=== PATIENT | female | born 1960 | race Caucasian/White ===

== ENCOUNTER → 2017-01-11 | Outpatient (REF) | payer OTHER | LOC: M LAB REF 17:00 | PROVIDERS: ATTEND Nurse Practitioner Family | DX: M25.50 Pain in unspecified joint (principal) ==

== ENCOUNTER → 2017-01-25 | Outpatient (REF) | payer OTHER | LOC: M LAB REF 14:39 | PROVIDERS: ATTEND Nurse Practitioner Family | DX: E83.52 Hypercalcemia (principal) ==

== ENCOUNTER → 2017-02-23 | Outpatient (REF) | payer OTHER ==
[2017-02-23 10:13] LABS: TOTAL VOLUME, URINE 2600 ML
[2017-02-23 10:45] LABS: CALCIUM, 24 HOUR URINE 483.6 MG/24HR (42-353); CALCIUM, URINE 18.6 MG/DL
== END ==
LOC: M LAB REF 10:06
DX: E21.0 Primary hyperparathyroidism (principal)

== ENCOUNTER → 2017-03-02 | Outpatient (CLI) | payer OTHER | LOC: M RAD 08:58 | DX: E21.0 Primary hyperparathyroidism (principal) ==

== ENCOUNTER → 2017-03-17 | Outpatient (REF) | payer OTHER ==
[2017-03-17 20:40] LABS: RHEUMATOID FACTOR QUANT < 10.0 IU/ML (0-15.0)
[2017-03-19 15:11] LABS: ANTINUCLEAR ANTIBODIES DIRECT Negative (Negative)
== END ==
LOC: M LAB REF 19:28
DX: M25.549 Pain in joints of unspecified hand (principal)
CPT/HCPCS: 86038

== ENCOUNTER 2017-04-25 07:56 | Emergency (ER) | payer OTHER ==
[2017-04-25 08:37] LABS: KETONE, URINE AUTO RFX NEGATIVE (NEGATIVE); LEUKOCYTE ESTERASE UR AUTO RFX NEGATIVE (NEGATIVE); MUCUS, URINE RFX SMALL (NEGATIVE); NITRITE, URINE AUTO RFX NEGATIVE (NEGATIVE); RBC, URINE AUTO RFX 1 /HPF (0-3); SPECIFIC GRAVITY UR AUTO RFX 1.018 (1.002-1.035); SQUAM EPITHELIAL CELL UR AURFX 0 /HPF (0-6); WBC, URINE AUTO RFX 2 /HPF (0-3)
[2017-04-25] MEDS: ONDANSETRON 4MG/2ML VIAL (J2405) IV (08:47)
[2017-04-25] MEDS: NS 1,000 ML IV (08:48)
[2017-04-25] MEDS: MORPHINE 4 MG/ML 1ML VIAL (J2270) IV ×2 (08:48→13:58)
[2017-04-25 08:51] LABS: BASO % 0.8 % (0.0-1.0); EOS # 0.1 10^3/uL (0.0-0.50); EOS % 1.1 % (0.0-3.0); HEMOGLOBIN 13.9 g/dl (12.0-16.0); IMMATURE GRANULOCYTE % 0.2 % (0-3.0); LYMPH # 0.9 10^3/uL (1.5-4.5); MEAN CORPUSCULAR HEMOGLOBIN 28.9 pg (27.0-33.0); MEAN CORPUSCULAR HGB CONC 33.9 g/dl (32.0-36.5); MEAN CORPUSCULAR VOLUME 85.2 fl (80.0-96.0); MONO # 0.6 10^3/uL (0.0-0.8); MONO % 10.7 % (0.0-5.0); NEUTROPHILS # 3.8 10^3/uL (1.8-7.7); NEUTROPHILS % 71.2 % (36.0-66.0); PLATELET COUNT, AUTOMATED 200 10^3/uL (150-450); RED BLOOD COUNT 4.81 10^6/uL (4.00-5.40); RED CELL DISTRIBUTION WIDTH 12.7 % (11.5-14.5); WHITE BLOOD COUNT 5.3 10^3/uL (4.0-10.0)
[2017-04-25 09:08] LABS: ALBUMIN 3.6 GM/DL (3.2-5.2); ALBUMIN/GLOBULIN RATIO 1.33 (1.00-1.93); ALKALINE PHOSPHATASE 85 U/L (45-117); ALT/SGPT 38 U/L (12-78); AMYLASE 58 U/L (25-115); ANION GAP 9 MEQ/L (8-16); AST/SGOT 40 U/L (7-37); BILIRUBIN,DIRECT 0.2 MG/DL (0.0-0.2); BILIRUBIN,TOTAL 0.7 MG/DL (0.2-1.0); BLOOD UREA NITROGEN 8 MG/DL (7-18); CALCIUM LEVEL 9.8 MG/DL (8.5-10.1); CARBON DIOXIDE LEVEL 24 MEQ/L (21-32); CHLORIDE LEVEL 109 MEQ/L (98-107); GLOMERULAR FILTRATION RATE > 60.0 (>51); GLUCOSE, FASTING 125 MG/DL (70-100); LIPASE 140 U/L (73-393); POTASSIUM SERUM 4.1 MEQ/L (3.5-5.1); SODIUM LEVEL 142 MEQ/L (136-145); TOTAL PROTEIN 6.3 GM/DL (6.4-8.2)
[2017-04-25] MEDS: GASTROGRAFIN SOLUTION 30ML PO ×2 (10:35→11:05)
[2017-04-25] MEDS ORDERED: ISOVUE-370 76% 100ML VIAL (Q9967) As Ordered (11:09)
[2017-04-25 14:05] LABS: PTH INTACT 135.3 PG/ML (18.5-88.0)
[2017-04-25 14:06] LABS: INR 1.08; PROTHROMBIN TIME 14.2 SECONDS (12.4-14.5)
[2017-04-25 14:07] LABS: PARTIAL THROMBOPLASTIN TIME 31.1 SECONDS (26.8-37.9)
[2017-04-25] MEDS ORDERED: LIDOCAINE 1% MDV 20ML VIAL As Ordered (14:51)
== END 2017-04-25 18:42 | disposition home or self-care (01) ==
LOC: M ED 07:56
DX: E86.0 Dehydration (principal); K65.9 Peritonitis, unspecified; C25.2 Malignant neoplasm of tail of pancreas; C78.7 Secondary malignant neoplasm of liver and intrahepatic bile duct; E21.3 Hyperparathyroidism, unspecified; Z79.899 Other long term (current) drug therapy; Z98.890 Other specified postprocedural states; Z88.8 Allergy status to other drugs, medicaments and biological substances
CPT/HCPCS: J2270

== ENCOUNTER → 2017-05-03 | Outpatient (REF) | payer OTHER ==
[2017-05-03 19:03] LABS: CA19-9 TUMOR MARKER,CARBOHYDRA 19.4 U/ML (<35.0)
== END ==
LOC: M LAB REF 17:31
DX: C78.7 Secondary malignant neoplasm of liver and intrahepatic bile duct (principal); C25.2 Malignant neoplasm of tail of pancreas

== ENCOUNTER → 2017-05-06 | Outpatient (CLI) | payer OTHER | LOC: M EKG 08:37 | DX: Z01.818 Encounter for other preprocedural examination (principal); R94.31 Abnormal electrocardiogram [ECG] [EKG] | CPT/HCPCS: 71046 ==

== ENCOUNTER → 2017-06-13 | Outpatient (REF) | payer OTHER ==
[2017-06-14 11:19] LABS: CA19-9 TUMOR MARKER,CARBOHYDRA 42.7 U/ML (<35.0)
== END ==
LOC: M LAB REF 13:34
DX: C25.2 Malignant neoplasm of tail of pancreas (principal)

== ENCOUNTER → 2017-07-05 | Outpatient (CLI) | payer OTHER ==
[~2017-07-05] MED LIST: GASTROGRAFIN SOLUTION 30ML (Q9963) As Ordered; ISOVUE-370 76% 100ML VIAL (Q9967) As Ordered
== END ==
LOC: M RAD 10:58
DX: C25.9 Malignant neoplasm of pancreas, unspecified (principal)
CPT/HCPCS: Q9963

== ENCOUNTER → 2017-07-12 | Outpatient (REF) | payer OTHER ==
[2017-07-12 14:52] LABS: CA19-9 TUMOR MARKER,CARBOHYDRA 47.7 U/ML (<35.0)
== END ==
LOC: M LAB REF 13:46
DX: C25.2 Malignant neoplasm of tail of pancreas (principal)

== ENCOUNTER → 2017-08-09 | Outpatient (REF) | payer OTHER | LOC: M LAB REF 13:17 | DX: C25.2 Malignant neoplasm of tail of pancreas (principal); C78.7 Secondary malignant neoplasm of liver and intrahepatic bile duct; K52.1 Toxic gastroenteritis and colitis; T45.1X5A Adverse effect of antineoplastic and immunosuppressive drugs, initial encounter | CPT/HCPCS: 86301 ==

== ENCOUNTER → 2017-08-25 | Outpatient (CLI) | payer OTHER | LOC: M RAD 09:13 | DX: D49.0 Neoplasm of unspecified behavior of digestive system (principal); C78.7 Secondary malignant neoplasm of liver and intrahepatic bile duct; K57.30 Diverticulosis of large intestine without perforation or abscess without bleeding | CPT/HCPCS: Q9963 ==

== ENCOUNTER → 2017-09-13 | Outpatient (REF) | payer OTHER ==
[2017-09-13 14:16] LABS: CA19-9 TUMOR MARKER,CARBOHYDRA 31.1 U/ML (<35.0)
== END ==
LOC: M LAB REF 13:13
DX: C25.2 Malignant neoplasm of tail of pancreas (principal); C78.7 Secondary malignant neoplasm of liver and intrahepatic bile duct; K52.1 Toxic gastroenteritis and colitis
CPT/HCPCS: 86301

== ENCOUNTER → 2017-10-18 | Outpatient (CLI) | payer OTHER ==
[~2017-10-18] MED LIST changes: -GASTROGRAFIN SOLUTION 30ML (Q9963) As Ordered; -ISOVUE-370 76% 100ML VIAL (Q9967) As Ordered; +PROHANCE 279.3MG/ML 15ML VIAL (A9576) As Ordered; +PROHANCE 279.3MG/ML 5ML VIAL (A9576) As Ordered
== END ==
LOC: M RAD 17:57
DX: D49.0 Neoplasm of unspecified behavior of digestive system (principal); M51.36 Other intervertebral disc degeneration, lumbar region; D18.09 Hemangioma of other sites
CPT/HCPCS: A9576

== ENCOUNTER → 2017-10-25 | Outpatient (REF) | payer OTHER ==
[2017-10-25 14:44] LABS: CARCINOEMBRYONIC ANTIGEN < 0.5 NG/ML (<2.5)
== END ==
LOC: M LAB REF 13:39
DX: C25.2 Malignant neoplasm of tail of pancreas (principal); C78.7 Secondary malignant neoplasm of liver and intrahepatic bile duct; K52.1 Toxic gastroenteritis and colitis; T45.1X5A Adverse effect of antineoplastic and immunosuppressive drugs, initial encounter; C7A.8 Other malignant neuroendocrine tumors

== ENCOUNTER → 2017-10-28 | Outpatient (CLI) | payer OTHER ==
[~2017-10-28] MED LIST changes: +GASTROGRAFIN SOLUTION 30ML (Q9963) As Ordered; +ISOVUE-370 76% 100ML VIAL (Q9967) As Ordered; -PROHANCE 279.3MG/ML 15ML VIAL (A9576) As Ordered; -PROHANCE 279.3MG/ML 5ML VIAL (A9576) As Ordered
== END ==
LOC: M RAD 12:44
DX: C25.9 Malignant neoplasm of pancreas, unspecified (principal); R91.1 Solitary pulmonary nodule
CPT/HCPCS: Q9963

== ENCOUNTER → 2017-12-22 | Outpatient (CLI) | payer OTHER | LOC: M RAD 16:26 | DX: C25.4 Malignant neoplasm of endocrine pancreas (principal); R93.2 Abnormal findings on diagnostic imaging of liver and biliary tract | CPT/HCPCS: Q9963 ==

== ENCOUNTER → 2018-01-24 | Outpatient (REF) | payer OTHER ==
[~2018-01-24] MED LIST changes: +DULC100C PO; -GASTROGRAFIN SOLUTION 30ML (Q9963) As Ordered; -ISOVUE-370 76% 100ML VIAL (Q9967) As Ordered; +NORCOTAB PO; +SERT-155 PO; +VITA50005 PO; +ZOFR4TAB14 PO
== END ==
LOC: M LAB REF 16:43
PROVIDERS: ATTEND Internal Medicine
DX: N76.0 Acute vaginitis (principal)

== ENCOUNTER → 2018-02-13 | Outpatient (CLI) | payer OTHER ==
[~2018-02-13] MED LIST changes: +GASTROGRAFIN SOLUTION 30ML (Q9963) As Ordered ONE; +ISOVUE-370 76% 100ML VIAL (Q9967) As Ordered ONE
--- NOTE | 2018-02-15 07:51 | REP ---
Clinical: History of pancreatic neuroendocrine tumor. Technique: Axial contrast enhanced images from the thoracic inlet to the upper abdomen with coronal and sagittal re-formations using 100 ml Isovue 370 intravenous contrast material. Comparison: 12/22/2017, 10/29/1979. Findings: The bilateral lung lobo are relatively symmetric, well aerated and without area of consolidation, nodule or mass lesion. Few small scattered pleural plaques are again noted and unchanged. Tracheobronchial tree is patent. Mediastinum demonstrates normal thoracic aorta, pulmonary vasculature and heart/pericardium. No adenopathy. Surrounding musculoskeletal structures are intact. Limited upper abdomen again demonstrates hepatic hypodensities consistent with metastatic disease and cystic lesion in the tail of the pancreas. Impression: 1. No acute mediastinal or pleuroparenchymal process. 2. Continued evidence for hepatic metastatic disease and primary cystic lesion in the pancreatic tail. Electronically Signed by Piotr Marks MD 02/15/2018 07:43 A
--- NOTE | 2018-02-15 07:58 | REP ---
Clinical: Pancreatic neuroendocrine tumor. Comparison: 12/22/2017. Technique: Axial contrast enhanced images from the lung bases to the pubic symphysis using oral (per protocol) and 100 ml Isovue 370 intravenous contrast material with delayed images of the abdomen as well as coronal and sagittal re-formations. Findings: Evaluation of the pancreas again includes a stable cystic lesion at the tail with mural nodules and subtle enhancement as well as few small calcifications and septations along with small adjacent daughter lesions. Largest lesion measures approximately 5.7 cm maximal diameter (previous measurement 5.7 cm maximal diameter. Hepatic hypodense lesions are essentially unchanged in quantity and size. A single stable hypervascular lesion in the superior segment of the right lobe is also again identified and may represent incidental hemangioma. Spleen, gallbladder, bilateral adrenal glands and kidneys are normal. The enteric system is without obstruction or acute inflammatory process. Normal terminal ileum and appendix are identified in the right lower quadrant. Scattered sigmoid diverticula noted without acute diverticulitis. Pelvis demonstrates normal bladder and age-appropriate uterus/adnexa. No ascites. No free air. No obvious intraperitoneal or retroperitoneal adenopathy. Lung bases are clear. Visualized heart and pericardium normal. Impression: 1. Essentially stable appearance to the primary pancreatic neuroendocrine tumor with adjacent daughter lesions and hepatic metastatic disease. 2. Few sigmoid diverticula without acute diverticulitis. 3. No ascites, focal inflammatory stranding or adenopathy noted. Electronically Signed by Piotr Marks MD 02/15/2018 07:51 A
== END ==
LOC: M RAD 09:43
PROVIDERS: ATTEND Nurse Practitioner Family
DX: C25.4 Malignant neoplasm of endocrine pancreas (principal); C78.7 Secondary malignant neoplasm of liver and intrahepatic bile duct
CPT/HCPCS: 71260; 74177; Q9963; Q9967

== ENCOUNTER → 2018-04-12 | Outpatient (CLI) | payer OTHER ==
[~2018-04-12] MED LIST changes: +CBD OIL; +CODCAP4 PO; +FLORCHW2 PO; +GREE150C3 PO; +KELP150T PO; +MULTLIQ7 PO; +SM V PO; +TURM500C PO; +VITA1CAP20 PO; +VITA500T PO
--- NOTE | 2018-04-13 06:32 | REP ---
Clinical: Stage IV pancreatic cancer for reevaluation. Technique: Axial contrast enhanced images from the thoracic inlet to the upper abdomen with coronal and sagittal re-formations using 100 ml Isovue 370 intravenous contrast material. Comparison: 02/13/2018. Findings: The bilateral lung lboo are clear and without pulmonary parenchymal consolidation, nodule or mass lesion. Very subtle scattered areas of posterior pleural thickening are nonspecific. No effusion. No pneumothorax. Tracheobronchial tree is patent. No axillary, hilar, or mediastinal adenopathy. The mediastinum demonstrates normal thoracic aorta, pulmonary vasculature and heart/pericardium. Osseous structures are intact and without focal osseous abnormality. Upper abdomen demonstrates stable multicystic complex mass in the pancreatic tail along with multiple hepatic metastatic foci similar to prior examination. Impression: 1. No acute mediastinal or significant pleuroparenchymal process appreciated. Very minimal scattered areas of posterior pleural thickening are nonspecific. 2. Pancreatic tail mass and hepatic metastatic disease similar to prior examination. Electronically Signed by Piotr Marks MD 04/13/2018 06:23 A
--- NOTE | 2018-04-13 06:41 | REP ---
Clinical: Stage IV pancreatic carcinoma for reevaluation. Technique: Add axial contrast enhanced images from the lung bases to the pubic symphysis U oozing 100 ml Isovue 370 intravenous contrast material with delayed images of the abdomen as well as coronal and sagittal re-formations. Comparison: 02/13/2018. Findings: Lung bases are clear. Visualized heart and pericardium normal. Multicystic pancreatic tail lesion remains essentially stable again measuring up to approximately 5.8 cm maximal AP diameter. Hepatic metastatic load has slightly increased from prior examination with increased number of metastatic foci and increased size to previously identified hepatic lesions. As example, the lesion between in the right and left hepatic lobes previously measured approximately 3.4 cm maximal diameter and currently measures 4.7 cm maximal diameter. Spleen, gallbladder, bilateral adrenal glands and kidneys are normal. Small hiatal hernia is identified. The remainder of the enteric system is without obstruction or acute inflammatory process. Normal terminal ileum and appendix are identified in the right lower quadrant. Few scattered sigmoid diverticula noted without acute diverticulitis. Pelvis demonstrates normal bladder and age-appropriate uterus/adnexa. No ascites. No free air. No obvious intraperitoneal or retroperitoneal adenopathy. Skeletal structures intact without focal osseous abnormality. Impression: 1. Slight increase in hepatic metastatic load. 2. Stable appearance to the primary pancreatic tail mass. 3. No ascites, adenopathy, or new mass lesion appreciated. Electronically Signed by Piotr Marks MD 04/13/2018 06:32 A
== END ==
LOC: M RAD 13:52
PROVIDERS: ATTEND Internal Medicine Medical Oncology
DX: C25.2 Malignant neoplasm of tail of pancreas (principal); C78.7 Secondary malignant neoplasm of liver and intrahepatic bile duct
CPT/HCPCS: 71260; 74177; Q9963; Q9967

== ENCOUNTER → 2018-08-07 | Outpatient (CLI) | payer OTHER ==
[~2018-08-07] MED LIST changes: +BENA25CA4 PO; +CAPE1TAB2 PO; +CHOL100029 PO; -CODCAP4 PO; +CODCAP5 PO; +CVS1CAP69 PO; -GASTROGRAFIN SOLUTION 30ML (Q9963) As Ordered ONE; +HYDR-3715 PO; -ISOVUE-370 76% 100ML VIAL (Q9967) As Ordered ONE; +KELP150T2 PO; -NORCOTAB PO; +PRED50TA PO; -SERT-155 PO; +SERT50TA29 PO; -SM V PO; +TEMO1CAP5 PO; +VITA1CHW7 PO; +VITA400C80 PO; +VITA40TA PO; +VITA500045 PO; +XELO1TAB PO
--- NOTE | 2018-08-07 14:10 | REP ---
WHOLE BODY BONE SCAN: Following the intravenous administration of 22 mCi of technetium-99m MDP, patient's whole body is imaged in the anterior and posterior projections with additional oblique and lateral views obtained. There is no compelling scintigraphic evidence of osseous metastases. There is homogeneous radiotracer distribution throughout the axial and appendicular skeleton. Renal and bladder activity are seen. IMPRESSION: No compelling scintigraphic evidence of osseous metastases. Electronically Signed by Denny Carr MD 08/07/2018 03:08 P
== END ==
LOC: M RAD 09:32
PROVIDERS: ATTEND Internal Medicine Medical Oncology
DX: M54.6 Pain in thoracic spine (principal); Z85.841 Personal history of malignant neoplasm of brain
CPT/HCPCS: 78306; A9503

== ENCOUNTER → 2018-08-30 | Outpatient (CLI) | payer OTHER ==
[~2018-08-30] MED LIST changes: -CHOL100029 PO; +CODCAP4 PO; -CODCAP5 PO; +SERT-155 PO; -SERT50TA29 PO; -VITA1CHW7 PO; +VITAD1000T PO; -XELO1TAB PO
== END ==
LOC: M RAD 15:32
PROVIDERS: ATTEND Internal Medicine Medical Oncology
DX: Z53.9 Procedure and treatment not carried out, unspecified reason (principal)

== ENCOUNTER → 2018-09-01 | Outpatient (CLI) | payer OTHER ==
[~2018-09-01] MED LIST changes: +ISOVUE-370 76% 100ML VIAL (Q9967) As Ordered ONE
--- NOTE | 2018-09-01 16:13 | REPVR ---
EXAM: CT Head Without and With Contrast EXAM DATE/TIME: 09/01/2018 4:01 PM CLINICAL HISTORY: 57 years old, female; Abnormal findings; Abnormal lab test; Chemo-induced thrombocytopenia TECHNIQUE: Imaging protocol: Computed tomography images of the head without and with intravenous contrast. Radiation optimization: All CT scans at this facility use at least one of these dose optimization techniques: automated exposure control; mA and/or kV adjustment per patient size (includes targeted exams where dose is matched to clinical indication); or iterative reconstruction. Contrast material: ISOVUE 370;Contrast volume: 100 ml;Contrast route: IV; COMPARISON: No relevant prior studies available. FINDINGS: Brain: Symmetric prominence of the frontal and cerebellar sulci. No acute cortical infarct, mass effect, or intracranial hemorrhage. Ventricles: Normal configuration of the ventricles. Bones/joints: No acute calvarial pathology. Sinuses: No sinus fluid. Mastoid air cells: No mastoid effusion. Soft tissues: Unremarkable soft tissues. IMPRESSION: No acute intracranial pathology. Electronically signed by: Zak Dacosta On 09/01/2018 16:12:41 PM
--- NOTE | 2018-09-01 16:16 | REPVR ---
EXAM: CT Maxillofacial With Contrast EXAM DATE/TIME: 09/01/2018 4:01 PM CLINICAL HISTORY: 57 years old, female; Other: Chemo-induced thrombocytopenia; Additional info: Pancreatic CA TECHNIQUE: Imaging protocol: Computed tomography images of the face with intravenous contrast. Coronal and sagittal reformatted images were created and reviewed. Radiation optimization: All CT scans at this facility use at least one of these dose optimization techniques: automated exposure control; mA and/or kV adjustment per patient size (includes targeted exams where dose is matched to clinical indication); or iterative reconstruction. Contrast material: ISOVUE 370;Contrast volume: 100 ml;Contrast route: IV; COMPARISON: No relevant prior studies available. FINDINGS: Orbits: Unremarkable appearance of the globes, optic nerves, and extraocular muscles. Sinuses: No sinus fluid. Trace left maxillary sinus mucoperiosteal disease. Bones/joints: No acute osseous pathology in the facial bones. Mild degenerative change and subchondral cysts involving the temporomandibular joints. Nasal cavity: Small right-sided nasal septal spur. Soft tissues: No significant facial soft tissue swelling. IMPRESSION: No acute abnormality in the visualized maxillofacial region. Electronically signed by: Zak Dacosta On 09/01/2018 16:16:11 PM
== END ==
LOC: M RAD 14:29
PROVIDERS: ATTEND Internal Medicine Medical Oncology
DX: D69.59 Other secondary thrombocytopenia (principal)
CPT/HCPCS: 70470; 70487; Q9967

== ENCOUNTER → 2019-05-14 | Outpatient (CLI) | payer OTHER ==
[~2019-05-14] MED LIST changes: +CHOL100029 PO; -CODCAP4 PO; +CODCAP5 PO; +LEXA1TAB PO; -SERT-155 PO; +SERT50TA29 PO; +VITA1CHW7 PO; -VITAD1000T PO; +XELO1TAB PO
--- NOTE | 2019-05-14 17:23 | REP ---
HISTORY: Pancreatic carcinoma. Followup. CONTRAST: 100 mL Isovue-370 COMPARISON: 04/12/2018 and 12/22/2017 Precontrast enhanced portion of the examination again shows scattered low density lesions throughout the liver. Contrast enhanced portion of the examination again shows varying degrees of enhancement of the aforementioned hepatic lesions. Overall the size of the lesions have decreased although their overall number appears unchanged. The gallbladder, spleen, adrenal glands and kidneys are again seen to be within normal limits and unchanged. Once again, in the left upper quadrant there is a multicystic pancreatic tail mass and although the size of the mass is essentially unchanged from the latest prior examination, the overall density of the mass lesion has decreased rather significantly. There is no evidence of geneva peripancreatic adenopathy. There is no free fluid or free air in the abdomen. The bowel loops and the mesenteries are again seen to be within normal limits. The abdominal aorta and periaortic regions are unchanged. There is no evidence of periaortic adenopathy. Bone window technique throughout the exam shows the osseous structures to be stable. CT PELVIS: The bowel loops and their mesenteries are essentially unchanged and again seen to be within normal limits. There is no free pelvic fluid or air. There is no evidence of a pelvic mass or adenopathy. Bone window technique throughout the exam shows no significant change in the appearance of the osseous structures. IMPRESSION: 1. Multiple hepatic lesions as described above indicate that there has been some improvement. 2. Although the overall size of the pancreatic tail masses have not changed significantly the overall density has decreased, also indicating some form of improvement. This should be correlated clinically. 3. Other findings as described above. Electronically Signed by Malcolm Rayo DO 05/15/2019 07:35 A
--- NOTE | 2019-05-14 17:25 | REP ---
CT CHEST WITH IV CONTRAST: TECHNIQUE: Axial contrast enhanced images from the thoracic inlet to the upper abdomen using 100 mL Isovue 370 intravenous contrast material with multiplanar reformations. COMPARISON: 04/12/2018 Again the lung lobo are clear with no nodule or infiltrate. There is no evidence of mediastinal, hilar or chest wall lymphadenopathy. The heart is normal in size. There is no pleural or pericardial effusion. Thoracic aorta is normal in caliber with no aneurysm or dissection. There is a Mediport catheter seen with the tip in the superior vena cava. There is a small hiatal hernia. There are degenerative changes of the spine with no definite bone lesion. IMPRESSION: No evidence of mass or adenopathy in the chest. No pulmonary nodule. Electronically Signed by Denny Carr MD 05/15/2019 10:35 A
== END ==
LOC: M RAD 14:18
DX: C7A.8 Other malignant neuroendocrine tumors (principal)
CPT/HCPCS: 71260; 74178; Q9967

== ENCOUNTER → 2019-09-24 | Outpatient (REF) | payer OTHER ==
[~2019-09-24] MED LIST changes: -ISOVUE-370 76% 100ML VIAL (Q9967) As Ordered ONE; +NEUR100C PO; +TEMO1CAP PO; -TEMO1CAP5 PO; +VITA-243 PO; -VITA500T PO
[2019-12-11 15:17] LABS: EOS # 0.1 10^3/uL (0.0-0.5); EOS % 2.1 % (0.0-3.0); HEMATOCRIT 40.9 % (36.0-47.0); HEMOGLOBIN 13.6 g/dl (12.0-15.5); LYMPH # 0.7 10^3/uL (1.5-5.0); LYMPH % 23.2 % (24.0-44.0); MEAN CORPUSCULAR HEMOGLOBIN 30.3 pg (27.0-33.0); MEAN CORPUSCULAR HGB CONC 33.3 g/dl (32.0-36.5); MEAN CORPUSCULAR VOLUME 91.1 fl (80.0-96.0); MONO # 0.3 10^3/uL (0.0-0.8); MONO % 9.7 % (0.0-5.0); NEUTROPHILS # 1.8 10^3/uL (1.5-8.5); NEUTROPHILS % 63.7 % (36.0-66.0); PLATELET COUNT, AUTOMATED 152 10^3/uL (150-450); RED BLOOD COUNT 4.49 10^6/uL (4.00-5.40); WHITE BLOOD COUNT 2.9 10^3/uL (4.0-10.0)
[2019-12-13 14:51] LABS: INR 1.05; PROTHROMBIN TIME 13.9 SECONDS (12.5-14.3)
== END ==
LOC: M LAB REF 12:30
PROVIDERS: ATTEND Student in an Organized Health Care Education/Training Program
DX: C78.7 Secondary malignant neoplasm of liver and intrahepatic bile duct (principal)

== ENCOUNTER → 2019-10-03 | Outpatient (CLI) | payer OTHER ==
[~2019-10-03] MED LIST changes: +PROHANCE 279.3MG/ML 15ML VIAL As Ordered ONE; +PROHANCE 279.3MG/ML 5ML VIAL As Ordered ONE
--- NOTE | 2019-10-03 15:02 | REPVR ---
PROCEDURE INFORMATION: Exam: MR Abdomen Without and With Contrast; Liver Exam date and time: 10/03/2019 1:45 PM Age: 58 years old Clinical indication: Condition or disease; Cancer; Liver; Primary site; Prior surgery; Surgery date: <1 month; Surgery type: Embolization 2 weeks ago; Patient HX: F/u embolization; Additional info: Neuoendocrine CA TECHNIQUE: Imaging protocol: MR Abdomen with and without intravenous contrast. Exam focused on the liver. Contrast material: PROHANCE; Contrast volume: 20 ml; Contrast route: INTRAVENOUS (IV); COMPARISON: CT ABD PELVIS W/O FOL BY WIT 05/14/2019 3:48 PM FINDINGS: Liver: Innumerable hepatic metastases. The largest of these measures 3.8 cm x 2.9 cm, within the hepatic dome. 2nd largest lesion measures 3.3 cm x 2.5 cm, within the caudate. Third largest lesion measures 3.2 cm x 2.3 cm, within the left hepatic lobe. The majority of the hepatic lesions demonstrate progressive hyperenhancement. Some of the right hepatic lobe lesions demonstrate only thin peripheral enhancement, without central enhancement. One of the lesions within the left caudate is hypoenhancing aside a thick peripheral rim of enhancement. Gallbladder and bile ducts: Normal gallbladder. No biliary ductal dilatation. Pancreas: Complex predominantly cystic mass within the tail of the pancreas, measuring 5.3 cm x 5.4 cm, containing several septations. Septations demonstrate enhancement. There is also a solid enhancing component within the caudal aspect of the lesion. Additional smaller slightly complex cystic masses within the tail of the pancreas, measuring up to 2.2 cm x 1.5 cm. There is a solid mass within the body of the pancreas measuring 2.3 cm x 2.3 cm, which demonstrates progressive delayed enhancement. No significant pancreatic ductal dilatation. Kidneys and ureters: Tiny 6 mm interpolar left renal simple cyst. No hydronephrosis. Intraperitoneal space: No free fluid. Bones/joints: Mild degenerative change of the spine. IMPRESSION: 1. Redemonstration of innumerable hepatic metastases. These appear essentially stable in size. The majority of the lesions are hyperenhancing. Some of the lesions, within the right hepatic lobe and the caudate lobe, demonstrate only thin peripheral enhancement. 2. Solid mass within the body of the pancreas. 3. Complex predominantly cystic masses within the tail of the pancreas. COMMENTS: Consistent with the [employer] [place]'s Incidental Findings Committee white paper (J Am Waqas Radiol 2018): Any incidental renal lesion less than 1.0 cm or classified as too small to characterize, or any incidental cystic renal lesion characterized as simple-appearing, is likely benign. No follow-up imaging is recommended for these lesions per consensus recommendations based on imaging criteria. Electronically signed by: Batool Morgan On 10/03/2019 15:02:39 PM
== END ==
LOC: M RAD 11:11
PROVIDERS: ATTEND Student in an Organized Health Care Education/Training Program
DX: C78.7 Secondary malignant neoplasm of liver and intrahepatic bile duct (principal); K86.89 Other specified diseases of pancreas
CPT/HCPCS: 74183; A9576

== ENCOUNTER → 2020-01-08 | Outpatient (CLI) | payer MEDICARE, MEDICAID ==
--- NOTE | 2020-01-08 10:23 | REP ---
INDICATION: F/U PANCREATIC CANCER. COMPARISON: . comparison is made with MRI study done approximately 4 months ago dated October 03, 2019. Comparison CT study May 14, 2019 is also reviewed.. TECHNIQUE: Axial and coronal imaging planes utilized. T1 and T2 weighted sequences include spin echo, fast spin echo, diffusion-weighted scans, in and out of phase imaging, and dynamically acquired sequential postcontrast imaging. The contrast enhancement dose is 20 mL of intravenous ProHance. FINDINGS: There are numerous metastatic lesions in the liver some of which demonstrate heterogeneous enhancement. These appear unchanged in the interval since the October 02/2020 study. No evidence of progression in size or number although they are fairly extensive. There is a heterogeneously enhancing 3 cm mass in the parenchyma of the pancreatic tail. On initial postcontrast images this does not enhance relative to the normal glandular parenchyma. At 1 and 2 minutes post injection and beyond, there is heterogeneous enhancement in this mass. This pattern and the size of this lesion or felt to be unchanged. Adjacent to this, near the pancreatic tail, is a multiloculated and septated cystic lesion which shows peripheral contrast enhancement. This component of the patient's disease is unchanged morphologically from the prior MRI study as well. The largest cystic component in the left upper quadrant measures 5.7 cm in greatest right to left dimension unchanged. No focal splenic lesion is seen. Adrenal glands remain normal. No renal mass lesion is observed. No retroperitoneal or periaortic adenopathy is observed. Pancreatic head remains intact. There is a metastatic lesion medial to the hepatic frank which is believed to be a quadrate lobe hepatic lesion although this could be adjacent adenopathy. In any event it too is unchanged. IMPRESSION: Stable pancreatic mass, peripancreatic cystic mass in the left upper quadrant, and extensive multifocal hepatic metastatic disease. No new lesion or interval growth seen. <Electronically signed by Keenan Crawford > 01/08/20 [id number]
== END ==
LOC: M RAD 08:25
PROVIDERS: ATTEND Specialist
DX: C78.7 Secondary malignant neoplasm of liver and intrahepatic bile duct (principal); C25.9 Malignant neoplasm of pancreas, unspecified
CPT/HCPCS: 74183; A9576

== ENCOUNTER → 2020-04-09 | Outpatient (CLI) | payer MEDICARE, OTHER ==
[~2020-04-09] MED LIST changes: +TEMO100C17 PO; -TEMO1CAP PO
--- NOTE | 2020-04-09 16:35 | REP ---
INDICATION: PANCREATIC CA FOLLOW UP. COMPARISON: 10/03/2019 and 01/08/2020. TECHNIQUE: Multiple sequences obtained in the axial coronal planes prior to and following the intravenous administration of 20 mL ProHance. FINDINGS: Multiple metastatic lesions are again seen throughout the liver. These are stable in size. No new lesion is seen. The heterogeneously enhancing 3 cm mass in the tail of the pancreas remains stable. The adjacent peripancreatic multiloculated septated cystic lesion is stable in size and appearance. There is peripheral contrast enhancement. No splenic lesion or adrenal mass is seen. The kidneys appear unremarkable. There is no adenopathy or free fluid. IMPRESSION: Stable liver metastases. Stable pancreatic tail mass and adjacent peripancreatic cystic mass. No new findings. <Electronically signed by Denny Carr > 04/09/20 [id number]
== END ==
LOC: M RAD 14:50
PROVIDERS: ATTEND Specialist
DX: C25.2 Malignant neoplasm of tail of pancreas (principal); C78.7 Secondary malignant neoplasm of liver and intrahepatic bile duct
CPT/HCPCS: 74183; A9576

== ENCOUNTER → 2020-05-30 | Outpatient (CLI) | payer MEDICARE, MEDICAID ==
[~2020-05-30] MED LIST changes: -PROHANCE 279.3MG/ML 15ML VIAL As Ordered ONE; -PROHANCE 279.3MG/ML 5ML VIAL As Ordered ONE; +SERT-141 PO
--- NOTE | 2020-05-30 11:13 | REPMRS ---
Patient History The patient states she had a clinical breast exam in April 2020. Patient is postmenopausal, had previous chemotherapy at age 56, and has history of pancreatic cancer at age 56. Family history of prostate cancer at age 50 or over in father. Benign excisional biopsy of the left breast, 1982. Took hormonal contraceptives for 5 years. Patient states no breast complaints today. Patient has signed MRS History Sheet. Digital Woman Screen Mammo: May 30, 2020 - Exam #: [id number] Bilateral CC and MLO view(s) were taken. Technologist: RT Fidel Prior study comparison: June 27, 2013, digital woman screen mammo performed at [facility]. May 10, 2012, digital woman screen mammo performed at [facility]. FINDINGS: The breast tissue is heterogeneously dense. This may lower the sensitivity of mammography. Screening. Digital screening (2D) mammography was performed bilaterally in the CC and MLO projections. Additionally, breast tomosynthesis (3D mammography) was performed bilaterally in the CC and MLO projections. Todays exam was compared to the prior exams(s). By history, the patient has no complaints of a palpable breast abnormality or other significant breast complaints. The breasts are unchanged in size and shape. Once again, dense heterogenous fibroglandular elements are seen bilaterally in a stable appearing pattern but to such a degree that the sensitivity of the mammogram in detecting cancer is decreased.There are no edson-soft tissue densities or spiculated masses. There is no internal architectural distortion. There are no suspicious edson-calcific clusters.Once again, stable benign appearing calcifications are seen. Skin thickening or nipple retraction is not present. IMPRESSION: BI-RADS Category 2- Benign Findings(s). There is no evidence of malignant alteration of the breasts. Followup examination recommended in one year. The [place] volumetric breast density category is C, the breasts are heterogenously dense which may obscure small masses. This mammogram was read with the assistance of [employer],an FDA approved computer aided detection system for mammography. The lifetime Tyrer-Cuzick score is 7.4 % Negative x-ray reports should not delay surgical consultation if a dominant or clinically suspicious mass is present. Not all breast cancers can be identified by mammography. Therefore, we recommend that you continue to perform regular breast self-examination and physical examination and then promptly contact your physician of any concerns or changes. Adenosis and dense breasts may obscure an underlying neoplasm. Assessment: BI-RADS/ACR category 2 mammogram. Benign Findings. Recommendation Routine screening mammogram of both breasts in 1 year. Electronically Signed By: Malcolm Rayo DO 05/30/20 [id number]
--- NOTE | 2020-05-30 11:54 | DEXAMM ---
INDICATION: Z13.820 SCREENING FOR OSTEOPOROSIS. COMPARISON: Comparison study September 01, 2004.. TECHNIQUE: Bone density was measured using dual-energy x-ray absorptionmetry (DEXA). FINDINGS: AP SPINE L1-L4 BMD 1.053 g/cm2 Young Adult T-Score -1.1 Age Matched Z-Score 0.0. LT FEMUR, TOTAL BMD 0.994 g/cm2 Young Adult T-Score -0.1 Age Matched Z-Score 0.8. LT NECK BMD 0.869 g/cm2 Young Adult T-Score -1.2 Age Matched Z-Score 0.0. RT FEMUR, TOTAL BMD 0.933 g/cm2 Young Adult T-Score -0.6 Age Matched Z-Score 0.3. RT NECK BMD 0.855 g/cm2 Young Adult T-Score -1.3 Age Matched Z-Score -0.1. IMPRESSION: There is low bone density of the spine. There is low bone density of the left hip. There is low bone density of the right hip. The density of the spine has decreased 10.4% since the initial exam on September 01, 2004. The density of the left hip has decreased 3.0% since initial exam on September 01, 2004. The density of the right hip has decreased 3.4% since the initial exam on September 01, 2004. FOLLOW-UP: Recommendation for the next bone density exam: 2 years. <Electronically signed by Keenan Crawford > 05/30/20 [id number]
== END ==
LOC: M WHC 09:20
PROVIDERS: ATTEND Internal Medicine
DX: Z12.31 Encounter for screening mammogram for malignant neoplasm of breast (principal); Z13.820 Encounter for screening for osteoporosis; Z78.0 Asymptomatic menopausal state; Z85.07 Personal history of malignant neoplasm of pancreas; Z92.21 Personal history of antineoplastic chemotherapy; M85.9 Disorder of bone density and structure, unspecified

== ENCOUNTER → 2020-07-16 | Outpatient (CLI) | payer MEDICARE, OTHER ==
[~2020-07-16] MED LIST changes: +PROHANCE 279.3MG/ML 15ML VIAL As Ordered ONE; +PROHANCE 279.3MG/ML 5ML VIAL As Ordered ONE
--- NOTE | 2020-07-16 13:04 | REP ---
INDICATION: PANCREATIC MASS W/ LIVER METS. COMPARISON: 04/09/2020 as well as multiple other prior exams. TECHNIQUE: Multiple sequences obtained in the axial coronal planes prior to and following the intravenous administration of 20 cc ProHance. FINDINGS: Multiple metastatic lesions are seen scattered throughout the liver. Several new lesions are seen. Enhancing lesions that were previously identified have mildly increased in size. There are few lesions in both lobes which demonstrated thin peripheral enhancement which are unchanged. Largest lesion is superiorly located in the medial segment of the left lobe measuring approximately 5.3 cm in maximum diameter. The liver is mildly enlarged with a length of approximately 18 cm. Spleen is mildly enlarged with a length of approximately 13.2 cm. No splenic lesion is seen. The adrenal glands are normal. The 2 cystic lesions in the tail of the pancreas are unchanged. The adjacent mass in the more proximal pancreas has mildly increased in size, approximate measurements are 3.5 x 4.2 cm. No mass is seen in the more proximal pancreas. There is no pancreatic duct or common bile duct dilatation. There is no intrahepatic biliary dilatation. The gallbladder demonstrates no definite abnormality. The kidneys are unremarkable. There is no adenopathy or free fluid in the abdomen. IMPRESSION: Worsening metastatic disease throughout the liver. Previously noted lesions have mildly increased in size and there are several new lesions identified. There is mild increase in size of the enhancing mass in the pancreas. The more peripheral 2 cystic lesions in the tail the pancreas are unchanged. <Electronically signed by Denny Carr > 07/16/20 [id number]
== END ==
LOC: M RAD 10:49
PROVIDERS: ATTEND Specialist
DX: K86.9 Disease of pancreas, unspecified (principal); K76.9 Liver disease, unspecified
CPT/HCPCS: 74183; A9576

== ENCOUNTER → 2020-10-08 | Outpatient (CLI) | payer MEDICARE, OTHER ==
[~2020-10-08] MED LIST changes: +ERGO500029 PO; +PAXI10TA12 PO
--- NOTE | 2020-10-08 17:41 | REP ---
INDICATION: PANCREATIC CA, METS. COMPARISON: 07/16/2020. TECHNIQUE: Multiple sequences obtained in the axial coronal planes prior to and following the intravenous administration of 20 mL ProHance. FINDINGS: Multiple enhancing metastatic lesions are again seen throughout the liver. These have mildly increased in size. The largest lesion is again noted in the medial segment of the left lobe and has a maximum diameter of 6.2 cm, previously 5.3 cm. Hepatomegaly as increased, the length of the liver is now 20 cm, previously 18 cm. The spleen is essentially at the upper limits normal in size approximately 12.7 cm. No splenic lesion is seen. The adrenal glands are normal. The cystic mass in the tail of the pancreas is unchanged approximately 5.1 cm in maximum diameter. The adjacent more solid-appearing mass just medial to that has mildly increased in size. Previously this measured about 4.5 cm. Currently it measures approximately 6.3 x 5.7 x 5.5 cm. The kidneys are unremarkable. No periaortic adenopathy is seen. No free fluid is seen. IMPRESSION: Multiple liver metastases have mildly increased in size since the prior exam as discussed above. The solid portion of the mass in the body of the pancreas has mildly increased in size. <Electronically signed by Denny Carr > 10/08/20 [id number]
== END ==
LOC: M RAD 15:46
PROVIDERS: ATTEND Specialist
DX: C25.9 Malignant neoplasm of pancreas, unspecified (principal); C78.7 Secondary malignant neoplasm of liver and intrahepatic bile duct
CPT/HCPCS: 74183; A9576

== ENCOUNTER 2020-10-22 16:57 | Emergency (ER) | payer MEDICARE, OTHER ==
[~2020-10-22] VITALS: Ht 162.6 cm; Wt 104.9 kg
[~2020-10-22 16:57] MED LIST changes: +D31000TA2 PO; +PARO20TA3 PO; -PROHANCE 279.3MG/ML 15ML VIAL As Ordered ONE; -PROHANCE 279.3MG/ML 5ML VIAL As Ordered ONE; +VITA-298 PO
[2020-10-22 17:35] LABS: BASO % 0.7 % (0.0-1.0); EOS # 0.1 10^3/uL (0.0-0.5); EOS % 1.9 % (0.0-3.0); HEMATOCRIT 38.2 % (36.0-47.0); HEMOGLOBIN 12.8 g/dl (12.0-15.5); LYMPH # 0.9 10^3/uL (1.5-5.0); LYMPH % 20.8 % (24.0-44.0); MEAN CORPUSCULAR HEMOGLOBIN 29.4 pg (27.0-33.0); MEAN CORPUSCULAR HGB CONC 33.5 g/dl (32.0-36.5); MEAN CORPUSCULAR VOLUME 87.8 fl (80.0-96.0); MONO # 0.3 10^3/uL (0.0-0.8); MONO % 6.8 % (2.0-8.0); NEUTROPHILS # 2.9 10^3/uL (1.5-8.5); NEUTROPHILS % 69.3 % (36.0-66.0); PLATELET COUNT, AUTOMATED 200 10^3/uL (150-450); RED BLOOD COUNT 4.35 10^6/uL (4.00-5.40); WHITE BLOOD COUNT 4.2 10^3/uL (4.0-10.0)
[2020-10-22 17:54] LABS: BLOOD UREA NITROGEN 7 MG/DL (7-18); CARBON DIOXIDE LEVEL 24 MEQ/L (21-32); CHLORIDE LEVEL 112 MEQ/L (98-107); CREATININE FOR GFR 0.47 MG/DL (0.55-1.30); GLOMERULAR FILTRATION RATE > 60.0 (>45); GLUCOSE, FASTING 156 MG/DL (70-100); POTASSIUM SERUM 3.7 MEQ/L (3.5-5.1); SODIUM LEVEL 143 MEQ/L (136-145)
[2020-10-22] MEDS ORDERED: MORPHINE 2 MG/ML 1ML VIAL (J2270) IV ONE (18:10)
[2020-10-22] MEDS ORDERED: ONDANSETRON 4MG/2ML VIAL IV ONE (18:10)
--- NOTE | 2020-10-22 18:19 | REP ---
INDICATION: CHEST PAIN. COMPARISON: 05/19/2017 TECHNIQUE: Portable FINDINGS: The technique utilized in obtaining the radiograph has magnified the cardiac silhouette and accentuated the interstitial markings. The superior mediastinal structures are midline. The cardiac silhouette is unremarkable in size, shape, and position. There is a MediPort device entering from the right subclavian region the tip of which is in the superior vena cava and unchanged from the prior exam. The diaphragmatic surfaces of the lungs are regular, and the costophrenic angles are clear. The pulmonary lobo are clear. The imaged osseous structures are intact. IMPRESSION: There is no acute cardiopulmonary disease. <Electronically signed by Malcolm Rayo > 10/22/20 [id number]
[2020-10-22 18:26] LABS: ALT/SGPT 36 U/L (12-78); BILIRUBIN,DIRECT < 0.1 MG/DL (0.0-0.2); BILIRUBIN,TOTAL 0.2 MG/DL (0.2-1.0); LIPASE 126 U/L (73-393); TOTAL PROTEIN 5.8 GM/DL (6.4-8.2)
--- NOTE | 2020-10-22 19:14 | ECGEPIP ---
[facility] - ED Test Date: 2020-10-22 Pat Name: JUDSON SHANNON Department: Room: - Gender: Female Student Officer: : 1960 Requested By: Tian Elam Order Number: [id number] Reading MD: Yadi Benton Measurements Intervals [place] Rate: 83 P: 55 AR: 118 QRS: 53 QRSD: 96 T: 30 QT: 366 QTc: 430 Interpretive Statements Normal sinus rhythm possible anterior infarct similar 05/06/17 Electronically Signed on 10-22-2020 19:14:05 EDT by Yadi Benton
[2020-10-22 22:46] LABS: CK-MB VALUE MASS 1.3 NG/ML (<3.6); MB/CK RELATIVE INDEX 1.01 (< OR =4); TROPONIN I 0.22 NG/ML (< 0.10)
[2020-10-22 23:49] LABS: INR 1.07; PARTIAL THROMBOPLASTIN TIME 33.4 SECONDS (25.9-37.0); PROTHROMBIN TIME 14.4 SECONDS (12.7-14.5)
[2020-10-22] MEDS ORDERED: CLOPIDOGREL 300 MG TAB (PLAVIX) PO ONE (23:55)
[2020-10-22] MEDS ORDERED: HEPARIN SOD (PORCINE) 5000UNITS/ML 1ML VIAL/SYRINGE IV ONE (23:55)
[2020-10-22] MEDS ORDERED: HEPARIN DRIP 25,000 UNITS in IV 1 EA IV SCH (23:55)
[2020-10-23 00:17] VITALS: BP 139/67
[2020-10-23 00:17] LABS: RSV AMPLIFICATION NEGATIVE (NEGATIVE)
--- NOTE | 2020-10-23 08:07 | ECGEPIP ---
[facility] - ED Test Date: 2020-10-22 Pat Name: JUDSON SHANNON Department: Room: - Gender: Female Setter Helper: NAHOMY : 1960 Requested By: Tian Elam Order Number: [id number] Reading MD: Tian Liu Measurements Intervals [place] Rate: 83 P: 63 SD: 140 QRS: 35 QRSD: 96 T: 48 QT: 360 QTc: 423 Interpretive Statements Normal sinus rhythm ANTERIOR INFARCT, AGE INDETERMINATE SIMILAR TO PRIOR ON SAME DATE Electronically Signed on 10-23-2020 8:07:08 EDT by Tian Liu
== END 2020-10-23 00:29 | disposition short-term general hospital (02) ==
LOC: M ED 16:57
DX: I21.4 Non-ST elevation (NSTEMI) myocardial infarction (principal); Z88.8 Allergy status to other drugs, medicaments and biological substances; Z85.89 Personal history of malignant neoplasm of other organs and systems; Z79.899 Other long term (current) drug therapy
CPT/HCPCS: 71045; 80047; 80048; 80076; 82550; 82553; 83690; 84484; 85025; 85610; 85730; 87631; 93005; 93041; 94760; 96374; 96375; 99285; J1644; J2270; J2405

== ENCOUNTER → 2020-10-30 | Outpatient (REF) | payer MEDICARE, OTHER ==
[2020-10-30 14:20] LABS: ALBUMIN 2.4 GM/DL (3.2-5.2); ALT/SGPT 348 U/L (12-78); BLOOD UREA NITROGEN 13 MG/DL (7-18); CALCIUM LEVEL 9.8 MG/DL (8.8-10.2); CARBON DIOXIDE LEVEL 28 MEQ/L (21-32); CHLORIDE LEVEL 103 MEQ/L (98-107); CREATININE FOR GFR 0.56 MG/DL (0.55-1.30); GLOMERULAR FILTRATION RATE > 60.0 (>45); GLUCOSE, FASTING 120 MG/DL (70-100); POTASSIUM SERUM 4.2 MEQ/L (3.5-5.1); SODIUM LEVEL 137 MEQ/L (136-145); TOTAL PROTEIN 5.3 GM/DL (6.4-8.2)
== END ==
LOC: M LABDRWAD 13:05
PROVIDERS: ATTEND Student in an Organized Health Care Education/Training Program
DX: Z79.52 Long term (current) use of systemic steroids (principal); Z79.899 Other long term (current) drug therapy

== ENCOUNTER → 2020-11-26 | Outpatient (CLI) | payer MEDICARE, OTHER ==
[~2020-11-26] MED LIST changes: +METO1TAB32 PO
[2020-11-26 12:34] LABS: BASO % 1.2 % (0.0-1.0); EOS # 0.1 10^3/uL (0.0-0.5); EOS % 2.1 % (0.0-3.0); HEMATOCRIT 35.1 % (36.0-47.0); HEMOGLOBIN 11.1 g/dl (12.0-15.5); LYMPH # 0.7 10^3/uL (1.5-5.0); LYMPH % 20.9 % (24.0-44.0); MEAN CORPUSCULAR HEMOGLOBIN 27.6 pg (27.0-33.0); MEAN CORPUSCULAR HGB CONC 31.6 g/dl (32.0-36.5); MEAN CORPUSCULAR VOLUME 87.3 fl (80.0-96.0); MONO # 0.3 10^3/uL (0.0-0.8); MONO % 8.6 % (2.0-8.0); NEUTROPHILS # 2.2 10^3/uL (1.5-8.5); NEUTROPHILS % 66.9 % (36.0-66.0); PLATELET COUNT, AUTOMATED 255 10^3/uL (150-450); RED BLOOD COUNT 4.02 10^6/uL (4.00-5.40); WHITE BLOOD COUNT 3.3 10^3/uL (4.0-10.0)
[2020-11-26 12:49] LABS: INR 1.15; PROTHROMBIN TIME 15.1 SECONDS (12.7-14.5)
[2020-11-26 12:55] LABS: ALBUMIN 2.8 GM/DL (3.2-5.2); ALT/SGPT 23 U/L (12-78); BILIRUBIN,TOTAL 0.5 MG/DL (0.2-1.0); BLOOD UREA NITROGEN 7 MG/DL (7-18); CALCIUM LEVEL 10.1 MG/DL (8.8-10.2); CARBON DIOXIDE LEVEL 27 MEQ/L (21-32); CHLORIDE LEVEL 110 MEQ/L (98-107); CREATININE FOR GFR 0.71 MG/DL (0.55-1.30); GLOMERULAR FILTRATION RATE > 60.0 (>45); GLUCOSE, FASTING 140 MG/DL (70-100); POTASSIUM SERUM 3.8 MEQ/L (3.5-5.1); SODIUM LEVEL 142 MEQ/L (136-145); TOTAL PROTEIN 5.8 GM/DL (6.4-8.2)
== END ==
LOC: M WUC 10:22
PROVIDERS: ATTEND Student in an Organized Health Care Education/Training Program
DX: C7A.1 Malignant poorly differentiated neuroendocrine tumors (principal)

== ENCOUNTER → 2020-12-03 | Outpatient (CLI) | payer MEDICARE, OTHER ==
[~2020-12-03] MED LIST changes: +PROHANCE 279.3MG/ML 15ML VIAL As Ordered ONE; +PROHANCE 279.3MG/ML 5ML VIAL As Ordered ONE
--- NOTE | 2020-12-03 18:28 | REP ---
INDICATION: MALIGNANT NEOPLASM BRAIN PNEAT. COMPARISON: 10/08/2020 as well as other prior exams. TECHNIQUE: Multiple sequences obtained in the axial coronal planes prior to and following the intravenous administration of 18 mL ProHance. FINDINGS: There is a small right pleural effusion. The liver is enlarged measuring 19.5 cm in length. 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 There is an area of subcapsular hemorrhage at the dome of the liver. A previously noted mass in the medial segment of the left lobe of the liver anteriorly and superiorly has decreased in size and appears somewhat necrotic with minimal internal ill-defined enhancement, measuring 3.7 x 3.4 cm, previously 6.6 x 5.4 cm.. Several other smaller lesions throughout both lobes similarly demonstrate a necrotic appearance with diminished size and enhancement. An enhancing nodule in the medial segment of the left lobe anteriorly measures 2.5 cm and has mildly increased in size. There is a cluster of multiple enhancing nodules more inferiorly in the anterior segment of the right lobe which have mildly increased in size. The largest of these measures 3.5 x 4.0 cm, previously 2.7 x 3.6 cm. The spleen is mildly enlarged 13.4 cm in length. The lobulated, solid, heterogeneously enhancing mass in the tail the pancreas has mildly increased in size measuring 6.4 x 6.6 cm, previously 5.7 x 5.5 cm. The more peripheral cystic portion has not changed. The kidneys are unremarkable. No enlarged para-aortic lymph nodes are seen. No free fluid is seen in the abdomen. IMPRESSION: Small right pleural effusion. There is an area of subcapsular hemorrhage at the dome of the liver. Hepatomegaly. Many of the previously noted enhancing nodules in the liver have decreased in size and appear necrotic with diminished internal enhancement. However, there are several enhancing nodules in the right lobe of the liver more inferiorly which have increased in size. The solid pancreatic tail mass has mildly increased in size. The more peripheral cystic component is stable. <Electronically signed by Denny Carr > 12/03/20 [id number]
== END ==
LOC: M RAD 15:39
PROVIDERS: ATTEND Specialist
DX: C25.2 Malignant neoplasm of tail of pancreas (principal); C78.7 Secondary malignant neoplasm of liver and intrahepatic bile duct; J90 Pleural effusion, not elsewhere classified; R16.0 Hepatomegaly, not elsewhere classified
CPT/HCPCS: 74183; A9576

== ENCOUNTER → 2021-01-07 | Outpatient (CLI) | payer MEDICARE, OTHER ==
[~2021-01-07] MED LIST changes: +LIDO1CRE42 TOP; -PROHANCE 279.3MG/ML 15ML VIAL As Ordered ONE; -PROHANCE 279.3MG/ML 5ML VIAL As Ordered ONE
[2021-01-07 11:51] LABS: BASO % 1.2 % (0.0-1.0); EOS # 0.1 10^3/uL (0.0-0.5); EOS % 3.7 % (0.0-3.0); HEMATOCRIT 39.1 % (36.0-47.0); HEMOGLOBIN 12.3 g/dl (12.0-15.5); LYMPH # 0.8 10^3/uL (1.5-5.0); LYMPH % 23.6 % (24.0-44.0); MEAN CORPUSCULAR HEMOGLOBIN 28.6 pg (27.0-33.0); MEAN CORPUSCULAR HGB CONC 31.5 g/dl (32.0-36.5); MEAN CORPUSCULAR VOLUME 90.9 fl (80.0-96.0); MONO # 0.3 10^3/uL (0.0-0.8); MONO % 8.9 % (2.0-8.0); NEUTROPHILS % 62.3 % (36.0-66.0); PLATELET COUNT, AUTOMATED 190 10^3/uL (150-450); WHITE BLOOD COUNT 3.3 10^3/uL (4.0-10.0)
[2021-01-07 12:01] LABS: INR 1.02; PROTHROMBIN TIME 13.8 SECONDS (12.7-14.5)
[2021-01-07 12:18] LABS: ALBUMIN 3.2 GM/DL (3.2-5.2); ALT/SGPT 48 U/L (12-78); BILIRUBIN,TOTAL 0.4 MG/DL (0.2-1.0); BLOOD UREA NITROGEN 8 MG/DL (7-18); CARBON DIOXIDE LEVEL 27 MEQ/L (21-32); CHLORIDE LEVEL 106 MEQ/L (98-107); CREATININE FOR GFR 0.58 MG/DL (0.55-1.30); GLOMERULAR FILTRATION RATE > 60.0 (>45); GLUCOSE, FASTING 118 MG/DL (70-100); POTASSIUM SERUM 4.1 MEQ/L (3.5-5.1); SODIUM LEVEL 139 MEQ/L (136-145); TOTAL PROTEIN 5.9 GM/DL (6.4-8.2)
== END ==
LOC: M WUC 10:01
PROVIDERS: ATTEND Student in an Organized Health Care Education/Training Program
DX: C25.2 Malignant neoplasm of tail of pancreas (principal)

== ENCOUNTER → 2021-02-27 | Outpatient (CLI) | payer MEDICARE, OTHER ==
[~2021-02-27] MED LIST changes: -LIDO1CRE42 TOP; +PROHANCE 279.3MG/ML 15ML VIAL As Ordered ONE; +PROHANCE 279.3MG/ML 5ML VIAL As Ordered ONE
== END ==
LOC: M RAD 10:44
PROVIDERS: ATTEND Specialist
DX: C25.9 Malignant neoplasm of pancreas, unspecified (principal); R93.5 Abnormal findings on diagnostic imaging of other abdominal regions, including retroperitoneum
CPT/HCPCS: 74183; A9576

== ENCOUNTER → 2021-03-19 | Outpatient (CLI) | payer MEDICARE, OTHER ==
[~2021-03-19] MED LIST changes: -PROHANCE 279.3MG/ML 15ML VIAL As Ordered ONE; -PROHANCE 279.3MG/ML 5ML VIAL As Ordered ONE
== END ==
LOC: M WUC 12:07
PROVIDERS: ATTEND Registered Nurse
DX: R06.02 Shortness of breath (principal); Z95.828 Presence of other vascular implants and grafts; R10.84 Generalized abdominal pain

== ENCOUNTER → 2021-06-16 | Outpatient (CLI) | payer MEDICARE, OTHER ==
[~2021-06-16] MED LIST changes: -D31000TA2 PO; +LIDO1CRE42 TOP; +VITA100093 PO
[2021-06-16 12:55] LABS: BASO % 1.2 % (0.0-1.0); EOS # 0.1 10^3/uL (0.0-0.5); EOS % 2.4 % (0.0-3.0); HEMATOCRIT 38.6 % (36.0-47.0); HEMOGLOBIN 12.8 g/dl (12.0-15.5); LYMPH # 0.5 10^3/uL (1.5-5.0); LYMPH % 13.9 % (24.0-44.0); MEAN CORPUSCULAR HEMOGLOBIN 28.8 pg (27.0-33.0); MEAN CORPUSCULAR HGB CONC 33.2 g/dl (32.0-36.5); MEAN CORPUSCULAR VOLUME 86.7 fl (80.0-96.0); MONO # 0.3 10^3/uL (0.0-0.8); MONO % 9.5 % (2.0-8.0); NEUTROPHILS # 2.4 10^3/uL (1.5-8.5); NEUTROPHILS % 72.4 % (36.0-66.0); PLATELET COUNT, AUTOMATED 129 10^3/uL (150-450); RED BLOOD COUNT 4.45 10^6/uL (4.00-5.40); WHITE BLOOD COUNT 3.4 10^3/uL (4.0-10.0)
[2021-06-16 13:31] LABS: ALBUMIN 3.4 GM/DL (3.2-5.2); ALT/SGPT 21 U/L (12-78); BILIRUBIN,TOTAL 0.6 MG/DL (0.2-1.0); BLOOD UREA NITROGEN 5 MG/DL (7-18); CALCIUM LEVEL 9.9 MG/DL (8.8-10.2); CARBON DIOXIDE LEVEL 24 MEQ/L (21-32); CHLORIDE LEVEL 109 MEQ/L (98-107); CREATININE FOR GFR 0.63 MG/DL (0.55-1.30); GLOMERULAR FILTRATION RATE > 60.0 (>45); GLUCOSE, FASTING 142 MG/DL (70-100); SODIUM LEVEL 138 MEQ/L (136-145); TOTAL PROTEIN 6.2 GM/DL (6.4-8.2)
== END ==
LOC: M WUC 09:10
DX: C25.2 Malignant neoplasm of tail of pancreas (principal)

== ENCOUNTER 2021-07-14 12:26 | Emergency (ER) | payer MEDICARE, OTHER ==
[~2021-07-14] VITALS: Ht 162.6 cm; Wt 98.6 kg
[~2021-07-14 12:26] MED LIST changes: +ONDA-84 PO; +PROC10TA5 PO
[2021-07-14 13:07] LABS: BASO % 0.1 % (0.0-1.0); HEMATOCRIT 38.1 % (36.0-47.0); HEMOGLOBIN 12.7 g/dl (12.0-15.5); LYMPH # 0.3 10^3/uL (1.5-5.0); LYMPH % 4.3 % (24.0-44.0); MEAN CORPUSCULAR HEMOGLOBIN 28.7 pg (27.0-33.0); MEAN CORPUSCULAR HGB CONC 33.3 g/dl (32.0-36.5); MONO # 0.5 10^3/uL (0.0-0.8); NEUTROPHILS # 6.4 10^3/uL (1.5-8.5); PLATELET COUNT, AUTOMATED 171 10^3/uL (150-450); RED BLOOD COUNT 4.43 10^6/uL (4.00-5.40); WHITE BLOOD COUNT 7.3 10^3/uL (4.0-10.0)
[2021-07-14] MEDS ORDERED: ONDANSETRON 4MG/2ML VIAL IV ONE (13:10)
[2021-07-14] MEDS: MORPHINE 4 MG/ML 1ML VIAL/SYRINGE IV PRN ×2 (13:17→13:46)
[2021-07-14] MEDS ORDERED: NS 1,000 ML IV ONE (13:20)
[2021-07-14 13:37] LABS: CK-MB VALUE MASS < 1.0 NG/ML (<3.6); CPK CREATINE PHOSPHOKINASE 408 U/L (26-192); MB/CK RELATIVE INDEX 0.25 (< OR =4)
[2021-07-14 13:43] LABS: ALBUMIN 3.4 GM/DL (3.2-5.2); ALT/SGPT 24 U/L (12-78); BILIRUBIN,DIRECT 0.2 MG/DL (0.0-0.2); BILIRUBIN,TOTAL 0.6 MG/DL (0.2-1.0); BLOOD UREA NITROGEN 12 MG/DL (7-18); CALCIUM LEVEL 10.4 MG/DL (8.8-10.2); CARBON DIOXIDE LEVEL 26 MEQ/L (21-32); CHLORIDE LEVEL 107 MEQ/L (98-107); CREATININE FOR GFR 0.78 MG/DL (0.55-1.30); FREE T4 1.33 NG/DL (0.76-1.46); GLOMERULAR FILTRATION RATE > 60.0 (>45); GLUCOSE, FASTING 158 MG/DL (70-100); LIPASE 112 U/L (73-393); POTASSIUM SERUM 4.1 MEQ/L (3.5-5.1); SODIUM LEVEL 138 MEQ/L (136-145); TOTAL PROTEIN 6.5 GM/DL (6.4-8.2)
[2021-07-14] MEDS ORDERED: HYDR-3715 PO (14:36)
[2021-07-14 17:28] VITALS: BP 180/80
== END 2021-07-14 17:33 | disposition home or self-care (01) ==
LOC: M ED 12:26
DX: R10.9 Unspecified abdominal pain (principal); C25.9 Malignant neoplasm of pancreas, unspecified; C78.7 Secondary malignant neoplasm of liver and intrahepatic bile duct; F33.9 Major depressive disorder, recurrent, unspecified; Z88.8 Allergy status to other drugs, medicaments and biological substances; Z79.899 Other long term (current) drug therapy
CPT/HCPCS: 71045; 74176; 80048; 80076; 82550; 82553; 83690; 84439; 84443; 84484; 85025; 93005; 93041; 94760; 96361; 96374; 96375; 99285; J2270; J2405

== ENCOUNTER → 2021-09-14 | Outpatient (CLI) | payer MEDICARE, OTHER | LOC: M RAD 10:01 | PROVIDERS: ATTEND Specialist | DX: C25.9 Malignant neoplasm of pancreas, unspecified (principal); C78.7 Secondary malignant neoplasm of liver and intrahepatic bile duct ==

== ENCOUNTER → 2021-10-19 | Outpatient (CLI) | payer MEDICARE, OTHER ==
[2021-10-19 09:55] LABS: BASO % 1.3 % (0.0-1.0); EOS # 0.1 10^3/uL (0.0-0.5); EOS % 4.5 % (0.0-3.0); HEMATOCRIT 37.1 % (36.0-47.0); HEMOGLOBIN 12.2 g/dl (12.0-15.5); LYMPH # 0.6 10^3/uL (1.5-5.0); LYMPH % 18.3 % (24.0-44.0); MEAN CORPUSCULAR HGB CONC 32.9 g/dl (32.0-36.5); MEAN CORPUSCULAR VOLUME 91.2 fl (80.0-96.0); MONO # 0.3 10^3/uL (0.0-0.8); MONO % 8.3 % (2.0-8.0); NEUTROPHILS # 2.1 10^3/uL (1.5-8.5); NEUTROPHILS % 67.3 % (36.0-66.0); PLATELET COUNT, AUTOMATED 142 10^3/uL (150-450); RED BLOOD COUNT 4.07 10^6/uL (4.00-5.40); WHITE BLOOD COUNT 3.1 10^3/uL (4.0-10.0)
[2021-10-19 11:40] LABS: ALBUMIN 3.5 GM/DL (3.2-5.2); ALT/SGPT 17 U/L (12-78); BILIRUBIN,TOTAL 0.5 MG/DL (0.2-1.0); BLOOD UREA NITROGEN 7 MG/DL (7-18); CALCIUM LEVEL 10.2 MG/DL (8.8-10.2); CARBON DIOXIDE LEVEL 26 MEQ/L (21-32); CHLORIDE LEVEL 105 MEQ/L (98-107); CREATININE FOR GFR 0.46 MG/DL (0.55-1.30); GLOMERULAR FILTRATION RATE > 60.0 (>45); GLUCOSE, FASTING 145 MG/DL (70-100); SODIUM LEVEL 136 MEQ/L (136-145); TOTAL PROTEIN 6.2 GM/DL (6.4-8.2)
[2021-10-20 11:40] LABS: CA19-9 TUMOR MARKER,CARBOHYDRA 97.5 U/ML (<35.0)
== END ==
LOC: M WUC 08:39
PROVIDERS: ATTEND Specialist
DX: C25.2 Malignant neoplasm of tail of pancreas (principal); C78.7 Secondary malignant neoplasm of liver and intrahepatic bile duct

== ENCOUNTER → 2021-11-02 | Outpatient (CLI) | payer MEDICARE, OTHER ==
[2021-11-02 12:17] LABS: BASO % 0.4 % (0.0-1.0); EOS # 0.1 10^3/uL (0.0-0.5); HEMATOCRIT 37.5 % (36.0-47.0); HEMOGLOBIN 12.1 g/dl (12.0-15.5); LYMPH # 0.6 10^3/uL (1.5-5.0); LYMPH % 14.1 % (24.0-44.0); MEAN CORPUSCULAR HEMOGLOBIN 28.9 pg (27.0-33.0); MEAN CORPUSCULAR HGB CONC 32.3 g/dl (32.0-36.5); MEAN CORPUSCULAR VOLUME 89.7 fl (80.0-96.0); MONO # 0.5 10^3/uL (0.0-0.8); MONO % 10.3 % (2.0-8.0); NEUTROPHILS # 3.2 10^3/uL (1.5-8.5); PLATELET COUNT, AUTOMATED 140 10^3/uL (150-450); RED BLOOD COUNT 4.18 10^6/uL (4.00-5.40); WHITE BLOOD COUNT 4.6 10^3/uL (4.0-10.0)
[2021-11-02 13:31] LABS: ALBUMIN 3.6 GM/DL (3.2-5.2); ALT/SGPT 24 U/L (12-78); BILIRUBIN,TOTAL 0.5 MG/DL (0.2-1.0); BLOOD UREA NITROGEN 9 MG/DL (7-18); CALCIUM LEVEL 10.2 MG/DL (8.8-10.2); CARBON DIOXIDE LEVEL 27 MEQ/L (21-32); CHLORIDE LEVEL 104 MEQ/L (98-107); CREATININE FOR GFR 0.58 MG/DL (0.55-1.30); GLOMERULAR FILTRATION RATE > 60.0 (>45); GLUCOSE, FASTING 120 MG/DL (70-100); POTASSIUM SERUM 4.1 MEQ/L (3.5-5.1); SODIUM LEVEL 135 MEQ/L (136-145); TOTAL PROTEIN 6.7 GM/DL (6.4-8.2)
== END ==
LOC: M WUC 10:16
PROVIDERS: ATTEND Specialist
DX: C25.9 Malignant neoplasm of pancreas, unspecified (principal); Z79.899 Other long term (current) drug therapy